=== PATIENT | female | born 2000 | race Caucasian/White ===

== ENCOUNTER 2020-04-10 00:11 | Observation (INO) | payer BC ==
[~2020-04-10] VITALS: Ht 185.4 cm; Wt 88.5 kg
[2020-04-10] VITALS (8 sets, daily range): BP systolic 102–118; BP diastolic 52–66; PULSE 59–71; TEMP 97.9–98.3
[2020-04-10 00:53] LABS: BASO % 0.5 % (0.0-2.0); EOS # 0.1 (0.0-0.7); GRAN # 4.3 (1.4-6.5); GRAN % 53.4 % (42.2-75.2); HEMATOCRIT 39.3 % (37.0-47.0); HEMOGLOBIN 12.9 g/dl (12.5-16.0); LYMPH % 36.5 % (20.0-51.0); MEAN CELL VOLUME 93 fl (80.0-100.0); MEAN CORPUSCULAR HEMOGLOBIN 31 pg (27.0-31.0); MEAN CORPUSCULAR HGB CONC 33 g/dl (33.0-37.0); MEAN PLATELET VOLUME 10.6 fl (7.4-10.4); MONO # 0.7 (0.1-0.6); MONO % 8.4 % (1.7-9.3); PLATELET COUNT 293 K/mm3 (130-400); RED BLOOD COUNT 4.23 M/mm3 (4.10-5.30); REDCELL DISTRIBUTION WIDTH-CV 12.7 % (11.5-14.5)
[2020-04-10 01:07] LABS: ALBUMIN 4.2 gm/dL (3.5-5.0); BILIRUBIN,TOTAL 0.3 mg/dL (0.0-1.0); CALCIUM 9.4 mg/dL (8.4-10.2); CREATININE, serum 0.82 (0.52-1.25); POTASSIUM 4.2 mmol/L (3.4-5.0); TOTAL PROTEIN 7.2 gm/dL (6.4-8.2)
[2020-04-10] MEDS ORDERED: ZOLOFT 50MG50 MG PO (02:06)
--- NOTE | 2020-04-10 03:57 | NUR ---
Pt. arrived to the floor via wheelchair. Pt. is A&OX3, assessment complete. INT to rt. ac patent. Pt. reports pain at an 8 on pain scale, will give pain meds per orders. Pt. denies further needs, call light within reach.
--- NOTE | 2020-04-10 10:49 | NUR ---
Patient alert and oriented, answers questions appropriately. See assessment. Abdomen soft, non tender, non distended. Bowel sounds active x4 quads. +Flatus. No c/o pain or discomfort. Chlorhexadine shower completed.
--- NOTE | 2020-04-10 11:00 | NUR ---
Patient to surgery at this time.
[2020-04-10] MEDS ORDERED: MOTRIN 600600 MG/TAB PO (12:45)
[2020-04-10] MEDS ORDERED: COLACE 100100 MG/CAP PO (12:45)
[2020-04-10] MEDS ORDERED: NORCO 325 MG-51 TAB PO (12:46)
--- NOTE | 2020-04-10 12:47 | NUR ---
Initial visit; Patient thanked Training Associate for looking in on her and mentioning that spiritual care is available to her while she is here with us.
--- NOTE | 2020-04-10 13:30 | NUR ---
Patient returns from surgery, assessment unchanged except abdomen with lap sites x3, edges well approximated, no redness or drainage noted. Post op exercise reviewed. No c/o at this time.
--- NOTE | 2020-04-10 16:11 | NUR ---
Discharge instructions reviewed with patient and parent, verbalized understanding. Discharged ambulatory to auto/home with family at 1610.
--- NOTE | 2020-04-10 16:54 | NUR ---
Gis Consultant met with patient and patient's mother Merna (ph#[phone]) to discuss discharge planning. Patient lives in [place] with three roommates and attends [facility]. Patient is originally from [place] and sees Dr. Ortiz for primary care. Patient obtains needed medications from [facility] and does not have Advance Directives. Patient plans to stay with her parents for a short time at discharge to recover. No needs at this time.
== END 2020-04-10 16:10 | disposition home or self-care (01) ==
LOC: COL.ER 00:11 → SURG 02:26
PROVIDERS: Emergency Medicine; ADMIT Surgery
DX: K35.80 Unspecified acute appendicitis (principal)
CPT/HCPCS: A9284; G0378; J0692; J1100; J1885; J2270; J2405; J2704; J3010; J7030; Q9967

== ENCOUNTER 2021-03-30 06:54 | Emergency (ER) | payer BC ==
[~2021-03-30] VITALS: Ht 185.4 cm; Wt 93.2 kg
[~2021-03-30 06:54] MED LIST: AUROVELA 21 1.1 EACH PO; COLACE 100100 MG/CAP PO; MOTRIN 600600 MG/TAB PO; NORCO 325 MG-51 TAB PO; ZOLOFT 50MG50 MG PO
[2021-03-30 07:06] VITALS: TEMP 98.1
[2021-03-30] MEDS ORDERED: ZOLOFT 100MG100 MG PO (07:09)
[2021-03-30 11:32] VITALS: BP 120/81; PULSE 76
[2021-03-30] MEDS ORDERED: FLEXERIL 1010 MG/TAB PO (11:33)
== END 2021-03-30 11:46 | disposition home or self-care (01) ==
LOC: COL.ER 06:54
DX: R51.9 Headache, unspecified (principal)
CPT/HCPCS: J0780; J1200; J1885; J3010; J7030

== ENCOUNTER → 2022-02-14 | Outpatient (CLI) | payer BC ==
[~2022-02-14] MED LIST changes: +FLEXERIL 1010 MG/TAB PO; +ZOLOFT 100MG100 MG PO
== END ==
LOC: COL.RAD 07:31
DX: R16.1 Splenomegaly, not elsewhere classified (principal); R10.2 Pelvic and perineal pain